=== PATIENT | female | born 1970 | race Two or more races ===

== ENCOUNTER 2021-08-21 16:25 | Emergency (ER) | payer SELFPAY ==
[~2021-08-21] VITALS: Ht 172.7 cm; Wt 114.0 kg
[2021-08-21 19:07] LABS: BASOPHILS % 0.3 % (0.0-2.0); HEMATOCRIT. 41.3 % (36.0-48.0); HEMOGLOBIN. 13.4 g/dL (12.0-16.0); LYMPHOCYTES % 14.8 % (20.0-50.0); MEAN CORPUSCULAR HEMOGLOBIN 28.4 pg (28.0-32.0); MEAN CORPUSCULAR VOLUME 87.3 fL (81.0-99.0); MONOCYTES % 7.2 % (2.0-8.0); NEUTROPHILS % 77.7 % (40.0-76.0); PLATELET 328 x1000/uL (130-400); RED BLOOD CELL COUNT 4.73 mill/uL (4.2-5.4); RED CELL DISTRIBUTION WIDTH 13.4 % (11.6-14.6)
[2021-08-21 19:12] LABS: CHLORIDE 95 mEq/L (98-107)
[2021-08-21 19:15] LABS: HCG SCREEN NEGATIVE
[2021-08-21 21:50] VITALS: BP 131/64
[2021-08-21 22:45] LABS: CLARITY URINE CLOUDY (CLEAR); COLOR URINE DARK YELLOW (YELLOW); KETONES URINE 3+ (NEGATIVE); LEUKOCYTE ESTERASE URINE 1+ (NEGATIVE); NITRITE URINE NEGATIVE (NEGATIVE); OCCULT BLOOD URINE TRACE (NEGATIVE); PH URINE 5.5 (4.5-8.0); PROTEIN URINE 2+ (NEGATIVE)
[2021-08-21] MEDS ORDERED: CEPH500C2 MT (23:50)
== END 2021-08-21 22:43 | disposition home or self-care (01) ==
LOC: ER 16:25
DX: R50.9 Fever, unspecified (principal); E11.9 Type 2 diabetes mellitus without complications; I10 Essential (primary) hypertension; Z20.822 Contact with and (suspected) exposure to COVID-19
CPT/HCPCS: 36415; 80053; 81003; 84703; 85025; 87426; 87804; 99283